=== PATIENT | female | born 1990 | race Caucasian/White ===

== ENCOUNTER 2018-02-05 13:35 | Emergency (ER) | payer OTHER ==
--- NOTE | 2018-02-05 14:53 | XR ---
EXAMINATION TYPE: XR chest 2V DATE OF EXAM: 02/05/2018 COMPARISON: NONE HISTORY: Cough and congestion TECHNIQUE: Frontal and lateral views of the chest are obtained. FINDINGS: Heart and mediastinum are normal. Lungs are clear. Diaphragm is normal. Bony thorax is int act. Pulmonary vascularity is normal. IMPRESSION: Normal chest.
--- NOTE | 2018-02-05 15:26 | ED ---
URI HPI - General Chief Complaint: Upper Respiratory Infection Stated Complaint: Cough Time Seen by Provider: 02/05/18 14:01 Source: patient, RN notes reviewed Mode of arrival: ambulatory Limitations: no limitations - History of Present Illness Initial Comments: 19-year-old female presents emergency Department chief complaint cough congestion. Patient states that her symptoms started last 24 hours states both of her kids are sick. Patient states she has no chest pain or shortness of breath she has mild nasal congestion cough. Denies any ear pain no sore throat no [id number] cough and cold medications no fever no chills - Related Data Previous Rx's Medication Instructions Recorded Azithromycin [Zithromax Z-pack] 1 pack PO DIRECTED #6 tab 01/16/15 Allergies Allergy/AdvReac Type Severity Reaction Status Date / Time povidone-iodine Allergy Unknown Verified 01/15/15 22:11 [From Betadine] soap [From Betadine] Allergy Unknown Verified 01/15/15 22:11 Review of Systems ROS Statement: Those systems with pertinent positive or pertinent negative responses have been documented in the HPI. ROS Other: All systems not noted in ROS Statement are negative. Past Medical History Past Medical History: No Reported History History of Any Multi-Drug Resistant Organisms: MRSA Date of last positivie culture/infection: 10/15/13 MDRO Source:: Groin Past Surgical History: Orthopedic Surgery Past Psychological History: No Psychological Hx Reported Smoking Status: Current every day smoker Past Alcohol Use History: None Reported Past Drug Use History: None Reported General Exam Limitations: no limitations General appearance: alert, in no apparent distress Head exam: Present: atraumatic, normocephalic, normal inspection Eye exam: Present: normal appearance, PERRL, EOMI. Absent: scleral icterus, conjunctival injection, periorbital swelling ENT exam: Present: normal exam, normal oropharynx, mucous membranes moist, TM's normal bilaterally, normal external ear exam Neck exam: Present: normal inspection, full ROM. Absent: tenderness, meningismus, lymphadenopathy Respiratory exam: Present: normal lung sounds bilaterally. Absent: respiratory distress, wheezes, rales, rhonchi, stridor Cardiovascular Exam: Present: regular rate, normal rhythm, normal heart sounds. Absent: systolic murmur, diastolic murmur, rubs, gallop, clicks Neurological exam: Present: alert Course Vital Signs 02/05/18 13:55 Temperature 98.3 F Pulse Rate 86 Respiratory 18 Rate Blood Pressure 103/62 O2 Sat by Pulse 100 Oximetry Medical Decision Making - Medical Decision Making 27-year-old female present for cough and cold symptoms starting in the last 24 hours. Chest x-ray negative. Patient has normal vitals and will be discharged. Patient advised to use [id number] cough and cold medications Disposition Clinical Impression: Upper respiratory infection Disposition: HOME SELF-CARE Condition: Stable Instructions: Upper Respiratory Infection (ED) Additional Instructions: Please return to the Emergency Department if symptoms worsen or any other concerns. Is patient prescribed a controlled substance at d/c from ED?: No Referrals: None,Stated [Primary Care Provider] - 1-2 days Time of Disposition: 15:26
[2018-02-05 15:56] VITALS: BP 108/67; PULSE 79; RESP 16; TEMP 98.5
== END 2018-02-05 15:50 | disposition home or self-care (01) ==
LOC: EC 13:35
DX: J06.9 Acute upper respiratory infection, unspecified (principal); F17.200 Nicotine dependence, unspecified, uncomplicated; Z86.14 Personal history of Methicillin resistant Staphylococcus aureus infection; Z88.8 Allergy status to other drugs, medicaments and biological substances
CPT/HCPCS: 71046; 99283

== ENCOUNTER 2019-02-25 19:10 | Emergency (ER) | payer OTHER ==
[2019-02-25 19:39] VITALS: BP 104/70; PULSE 92; RESP 20; TEMP 98.1
--- NOTE | 2019-02-25 21:10 | ED ---
General Adult HPI - General Chief complaint: ENT Stated complaint: Sore Throat Time Seen by Provider: 02/25/19 19:45 Source: patient, RN notes reviewed Mode of arrival: ambulatory Limitations: no limitations - History of Present Illness Initial comments: 28 year old female presents to the emergency department for a chief complaint of lump on the left side of neck. Patient states that she has had a sore throat for the past few days. States she had a lump bilaterally on her neck however the one on the right side has gone away. States she still has the bump on the left side. She states it is tender. Patient states she has had a sore throat for the past 2 days. States she can swallow solids and liquids but it is painful. Denies any sensation of throat closing. Denies fevers or chills. Denies neck stiffness or pain. Denies any significant cough associated with this.Patient has no other complaints at this time including shortness of breath, chest pain, abdominal pain, nausea or vomiting, headache, or visual changes. - Related Data Previous Rx's Medication Instructions Recorded Azithromycin [Zithromax Z-pack] 1 pack PO DIRECTED #6 tab 01/16/15 Allergies Allergy/AdvReac Type Severity Reaction Status Date / Time povidone-iodine Allergy Unknown Verified 02/25/19 19:39 [From Betadine] soap [From Betadine] Allergy Unknown Verified 02/25/19 19:39 Review of Systems ROS Statement: Those systems with pertinent positive or pertinent negative responses have been documented in the HPI. ROS Other: All systems not noted in ROS Statement are negative. Past Medical History Past Medical History: No Reported History History of Any Multi-Drug Resistant Organisms: MRSA Date of last positivie culture/infection: 10/15/13 MDRO Source:: Groin Past Surgical History: Orthopedic Surgery Past Psychological History: No Psychological Hx Reported Smoking Status: Current some day smoker Past Alcohol Use History: None Reported Past Drug Use History: None Reported General Exam Limitations: no limitations General appearance: alert, in no apparent distress Head exam: Present: atraumatic, normocephalic, normal inspection Eye exam: Present: normal appearance, PERRL, EOMI. Absent: scleral icterus, conjunctival injection, periorbital swelling ENT exam: Present: normal exam, normal oropharynx (Mild erythematous however no tonsillar exudates noted. Uvula is midline. No fullness of the tonsillar pillars suggestive of peritonsillar abscess), mucous membranes moist, TM's normal bilaterally, normal external ear exam Neck exam: Present: normal inspection, full ROM. Absent: tenderness, meningismus, lymphadenopathy Respiratory exam: Present: normal lung sounds bilaterally. Absent: respiratory distress, wheezes, rales, rhonchi, stridor Cardiovascular Exam: Present: regular rate, normal rhythm, normal heart sounds. Absent: systolic murmur, diastolic murmur, rubs, gallop, clicks Course Vital Signs 02/25/19 19:37 Temperature 98.1 F Pulse Rate 92 Respiratory 20 Rate Blood Pressure 104/70 O2 Sat by Pulse 100 Oximetry Medical Decision Making - Medical Decision Making Strep is negative. Heterophile negative. Vitals are stable. Patient is afebrile. Uvula is midline. I do not see any evidence for peritonsillar abscess. At this time given afebrile nature as well as a negative strep patient will not be treated with antibiotics. He recommended anti-inflammatories as well as supportive treatment. Recommended she follow up with primary care to monitor the lymph node to ensure is resolves and return if she has any worsening symptoms. - Lab Data Lab Results 02/25/19 02/25/19 Range/Units 20:28 20:28 Heterophile Antibody Negative (Negative) Group A Strep Rapid Negative (Negative) Disposition Clinical Impression: Lymphadenopathy, Sore throat Disposition: HOME SELF-CARE Condition: Good Instructions (If sedation given, give patient instructions): Pharyngitis (ED) Additional Instructions: Please take Motrin and Tylenol for pain. Follow-up with primary care in 1-2 days for recheck. Follow-up to ensure that the lymph node is improving. If you have any worsening symptoms such as difficulty swallowing or fevers return to the emergency department. Is patient prescribed a controlled substance at d/c from ED?: No Referrals: Leno Avila MD [REFERRING] - 1-2 days Time of Disposition: 21:11
== END 2019-02-25 21:18 | disposition home or self-care (01) ==
LOC: EC 19:10
DX: J02.9 Acute pharyngitis, unspecified (principal); F17.200 Nicotine dependence, unspecified, uncomplicated; Z91.048 Other nonmedicinal substance allergy status; Z86.14 Personal history of Methicillin resistant Staphylococcus aureus infection
CPT/HCPCS: 36415; 86308; 87081; 87430; 99283